=== PATIENT | male | born 1965 | race African-American/Black ===

== ENCOUNTER 2021-07-31 16:06 | Emergency (ER) | payer OTHER ==
--- NOTE | 2021-07-31 17:10 | EDM.PDOC ---
ED HPI GENERAL MEDICAL PROBLEM - General Chief Complaint: Respiratory Problem Stated Complaint: ABDOMINAL PAIN COUGH Time Seen by Provider: 07/31/21 16:52 Source of Information: Reports: Patient, RN Notes Reviewed History Limitations: Reports: No Limitations - History of Present Illness INITIAL COMMENTS - FREE TEXT/NARRATIVE: Patient is a 56-year-old male who presents to the ER for the evaluation of his cough. Patient states that for the last week, he has had a generalized nonproductive cough. States anytime he really tries to talk, he coughs. He does have some associated feelings of being hot and cold, and shortness of breath. Patient notes that it has worsened over the last 2 days as well. He does state that he got his first Pfizer Covid vaccine sometime in June but he cannot remember the date specifically. He does not think he has been around anyone that is been sick that he is aware of. He is having some generalized abdominal discomfort, seems to worsen when he is coughing, or just after he is done coughing. He has not been taking any medications for this. Patient does have some history of hypertension, and states that he is set to have an ultr asound of his renal system for ongoing management of this. Patient also states he has had not much of an appetite, so he feels generalized weakness because he is not really been eating well. Abdomen Pain Score (Numeric/FACES): 8 - Related Data Allergies Allergy/AdvReac Type Severity Reaction Status Date / Time No Known Allergies Allergy Verified 07/31/21 16:43 Home Meds: Home Meds Codeine/Promethazine [Phenergan with Codeine] 5 ml PO Q4HR PRN #120 ml 07/31/21 [Rx] Losartan Potassium [Cozaar] 1 tab PO DAILY 07/31/21 [History] Spironolactone [Aldactone] 25 mg PO DAILY 07/31/21 [History] hydroCHLOROthiazide [Hydrochlorothiazide] 25 mg PO DAILY 07/31/21 [History] Past Medical History Cardiovascular History: Reports: Hypertension Social & Family History - Tobacco Use Tobacco Use Status *Q: Never Tobacco User - Caffeine Use Caffeine Use: Reports: None - Recreational Drug Use Recreational Drug Use: No ED ROS GENERAL - Review of Systems Review Of Systems: Comprehensive ROS is negative, except as noted in HPI. ED EXAM, GENERAL - Physical Exam Exam: See Below Exam Limited By: No Limitations General Appearance: Alert, WD/WN, No Apparent Distress Respiratory/Chest: No Respiratory Distress, Lungs Clear, Normal Breath Sounds, No Accessory Muscle Use, Chest Non-Tender Cardiovascular: Normal Peripheral Pulses, Regular Rate, Rhythm, No Edema Peripheral Pulses: 2+: Radial (L), Radial (R) GI/Abdominal: Normal Bowel Sounds, Soft, No Distention, No Mass, Tender (generalized discomfort) Neurological: Alert, Oriented, Normal Cognition, No Motor/Sensory Deficits Psychiatric: Normal Affect, Normal Mood Skin Exam: Warm, Dry, Intact, Normal Color, No Rash Course - Vital Signs Last Recorded V/S: Last Vital Signs Temp 97.6 F 07/31/21 16:39 Pulse 73 07/31/21 16:39 Resp 18 07/31/21 16:39 BP 106/65 07/31/21 16:39 Pulse Ox 100 07/31/21 16:39 - Orders/Labs/Meds Labs: Laboratory Tests 07/31/21 07/31/21 07/31/21 Range/Units 17:05 17:20 17:20 WBC 4.37 (4.23-9.07) K/mm3 RBC 5.22 (4.63-6.08) M/mm3 Hgb 13.5 L (13.7-17.5) gm/dl Hct 39.9 L (40.1-51.0) % MCV 76.4 L (79.0-92.2) fl MCH 25.9 (25.7-32.2) pg MCHC 33.8 (32.2-35.5) g/dl RDW Std Deviation 39.8 (35.1-43.9) fL Plt Count 248 (163-337) K/mm3 MPV 10.5 (9.4-12.3) fl Neut % (Auto) 74.8 H (34.0-67.9) % Lymph % (Auto) 12.4 L (21.8-53.1) % [place] % (Auto) 12.1 (5.3-12.2) % Eos % (Auto) 0 L (0.8-7.0) Baso % (Auto) 0.5 (0.1-1.2) % Neut # (Auto) 3.27 (1.78-5.38) K/mm3 Lymph # (Auto) 0.54 L (1.32-3.57) K/mm3 [place] # (Auto) 0.53 (0.30-0.82) K/mm3 Eos # (Auto) 0.00 L (0.04-0.54) K/mm3 Baso # (Auto) 0.02 (0.01-0.08) K/mm3 Sodium (136-145) mEq/L Potassium (3.5-5.1) mEq/L Chloride (98-107) mEq/L Carbon Dioxide (21-32) mEq/L Anion Gap (5-15) BUN (7-18) mg/dL Creatinine (0.7-1.3) mg/dL Est Cr Clr Drug Dosing mL/min Estimated GFR (MDRD) (>60) mL/min BUN/Creatinine Ratio (14-18) Glucose (70-99) mg/dL Calcium (8.5-10.1) mg/dL Magnesium (1.8-2.4) mg/dL Total Bilirubin (0.2-1.0) mg/dL AST (15-37) U/L ALT (16-63) U/L Alkaline Phosphatase (46-116) U/L C-Reactive Protein 11.5 H* (<1.0) mg/dL Total Protein (6.4-8.2) g/dl Albumin (3.4-5.0) g/dl Globulin gm/dL Albumin/Globulin Ratio (1-2) Influenza Type A RNA Negative (NEGATIVE) Influenza Type B RNA Negative (NEGATIVE) SARS-CoV-2 RNA (BACILIO) Positive H (NEGATIVE) 07/31/21 Range/Units 17:20 WBC (4.23-9.07) K/mm3 RBC (4.63-6.08) M/mm3 Hgb (13.7-17.5) gm/dl Hct (40.1-51.0) % MCV (79.0-92.2) fl MCH (25.7-32.2) pg MCHC (32.2-35.5) g/dl RDW Std Deviation (35.1-43.9) fL Plt Count (163-337) K/mm3 MPV (9.4-12.3) fl Neut % (Auto) (34.0-67.9) % Lymph % (Auto) (21.8-53.1) % [place] % (Auto) (5.3-12.2) % Eos % (Auto) (0.8-7.0) Baso % (Auto) (0.1-1.2) % Neut # (Auto) (1.78-5.38) K/mm3 Lymph # (Auto) (1.32-3.57) K/mm3 [place] # (Auto) (0.30-0.82) K/mm3 Eos # (Auto) (0.04-0.54) K/mm3 Baso # (Auto) (0.01-0.08) K/mm3 Sodium 138 (136-145) mEq/L Potassium 4.2 (3.5-5.1) mEq/L Chloride 101 (98-107) mEq/L Carbon Dioxide 26 (21-32) mEq/L Anion Gap 15.2 H (5-15) BUN 32 H (7-18) mg/dL Creatinine 2.5 H (0.7-1.3) mg/dL Est Cr Clr Drug Dosing 34.47 mL/min Estimated GFR (MDRD) 33 (>60) mL/min BUN/Creatinine Ratio 12.8 L (14-18) Glucose 94 (70-99) mg/dL Calcium 8.4 L (8.5-10.1) mg/dL Magnesium 2.2 (1.8-2.4) mg/dL Total Bilirubin 0.6 (0.2-1.0) mg/dL AST 25 (15-37) U/L ALT 24 (16-63) U/L Alkaline Phosphatase 39 L (46-116) U/L C-Reactive Protein (<1.0) mg/dL Total Protein 7.3 (6.4-8.2) g/dl Albumin 3.0 L (3.4-5.0) g/dl Globulin 4.3 gm/dL Albumin/Globulin Ratio 0.7 L (1-2) Influenza Type A RNA (NEGATIVE) Influenza Type B RNA (NEGATIVE) SARS-CoV-2 RNA (BACILIO) (NEGATIVE) - Re-Assessments/Exams Free Text/Narrative Re-Assessment/Exam: 07/31/21 17:09 Patient presents to the ER for the evaluation of his cough, and generalized abdominal discomfort. We will do a COVID-19 screen, and some basic labs and a chest x-ray for ongoing evaluation. Departure - Departure Time of Disposition: 18:54 Disposition: Home, Self-Care 01 Condition: Good Clinical Impression: COVID-19 - Discharge Information *PRESCRIPTION DRUG MONITORING PROGRAM REVIEWED*: No *COPY OF PRESCRIPTION DRUG MONITORING REPORT IN PATIENT CAROL ANN: No Prescriptions: Codeine/Promethazine [Phenergan with Codeine] 5 ml PO Q4HR PRN #120 ml PRN Reason: Cough Instructions: 10 Things You Can Do to Manage Your COVID-19 Symptoms at Home - [facility] (05/11/2021), COVID-19 Frequently Asked Questions Forms: ED Department Discharge Additional Instructions: You were seen in the ER today for ongoing and/or worsening respiratory symptoms. Your chest x-ray showed no subtle signs of viral pneumonia at this time, which is typical for COVID-19 Your oxygen levels were great at 97-98 Please try to increase your oral fluid intake, and eat multiple small meals throughout the day, to keep yourself healthy. You need to keep yourself nourished in order to fight off this disease. You can try a liquid diet like gatorade/powerade as well to get your electrolytes. You may take 500 mg Tylenol every hours 6 hours for pain/fever relief. Do not exceed 4000 mg Tylenol in a 24-hour time span. However, running a fever is your body's natural response to illness, and it allows the body to develop antibodies to disease, we are recommending trying to limit the use of Tylenol as much as possible to allow your body's natural immune response. Recommend you obtain a pulse oximeter and monitor your oxygen levels at home, you should place the monitor on your finger, and sit in a calm, quiet position for a few minutes and then record the number that is on the screen. If this c onsistently below 90% on room air without movement, this would be cause for concern to come back to the hospital for further management of your COVID-19 disease. Please follow all guidance set forth from [facility], regarding isolation purposes for your disease process. General isolation times are 10 days from when you started being symptomatic. You were given a cough medicine prescription that you can fill at your local pharmacy tomorrow. Due to you being Covid positive I would suggest that you call your pharmacy before you go there and let them know of your Covid status so they can maybe bring the cough medicine out to your car for use you can limit your exposure to others. This medication was electronically prescribed to the [facility] located in [facility] Sepsis Event Note (ED) - Evaluation Sepsis Screening Result: No Definite Risk - Focused Exam Vital Signs: Vital Signs Temp Pulse Resp BP Pulse Ox 07/31/21 16:39 97.6 F 73 18 106/65 100
[2021-07-31 18:36] LABS: CORONAVIRUS COVID-19 NAA POSITIVE (NEGATIVE)
--- NOTE | 2021-07-31 18:42 | CR ---
Chest: Portable view of the chest was obtained. Comparison: No prior chest imaging is available. Heart size is within normal limits. Tortuous thoracic aorta is seen. Slight parenchymal densities are noted along the lateral lower left chest as well as within the right lower chest. Upper lungs are clear. Bony structures show nothing acute. Impression: 1. Slight parenchymal change on both sides as described above most likely representing mild areas of pneumonia. Please correlate if this represents COVID etiology. Diagnostic code #3
== END 2021-07-31 21:00 | disposition home or self-care (01) ==
LOC: JD.ED 16:06
DX: U07.1 COVID-19 (principal); I10 Essential (primary) hypertension; Z79.899 Other long term (current) drug therapy
CPT/HCPCS: 0240U; 36415; 71045; 80053; 83735; 85025; 86140; 99285

== ENCOUNTER 2021-08-02 11:17 | Emergency (ER) | payer OTHER ==
[2021-08-02] MEDS ORDERED: Lactated Ringers 1,000 ML IV ONE (11:57)
--- NOTE | 2021-08-02 12:10 | EDM.PDOC ---
ED HPI GENERAL MEDICAL PROBLEM - General Chief Complaint: Respiratory Problem Stated Complaint: COVID +/SOB Time Seen by Provider: 08/02/21 11:30 Source of Information: Reports: Patient History Limitations: Reports: No Limitations - History of Present Illness INITIAL COMMENTS - FREE TEXT/NARRATIVE: Patient is 56-year-old male with no significant past medical history presenting with a chief complaint of shortness of breath and pain in his chest. Patient reports having right-sided pain which is described as a burning sensation. He also reports pain in his left side that is less severe. Patient states the pain is worse when he takes a deep breath or coughs. Denies any hematemesis. Denies any nausea or vomiting. Patient reports decreased appetite but is drinking Gatorade for fluid intake. Patient denies any urinary symptoms or abdominal pain. Patient diagnosed with Covid several days ago but patient has had approximately 2 weeks of symptoms. Patient received 1 dose of the Covid vaccine but did not receive a 2nd dose. Chest Pain Score (Numeric/FACES): 8 - Related Data Allergies Allergy/AdvReac Type Severity Reaction Status Date / Time No Known Allergies Allergy Verified 08/02/21 11:34 Home Meds: Home Meds Codeine/Promethazine [Phenergan with Codeine] 5 ml PO Q4HR PRN #120 ml 07/31/21 [Rx] Losartan Potassium [Cozaar] 1 tab PO DAILY 07/31/21 [History] Spironolactone [Aldactone] 25 mg PO DAILY 07/31/21 [History] hydroCHLOROthiazide [Hydrochlorothiazide] 25 mg PO DAILY 07/31/21 [History] Apixaban [Eliquis] 10 mg PO BID 7 Days #42 tablet 08/02/21 [Rx] Past Medical History Cardiovascular History: Reports: Hypertension - Infectious Disease History Infectious Disease History: Reports: Novel Coronavirus Social & Family History - Tobacco Use Tobacco Use Status *Q: Never Tobacco User Second Hand Smoke Exposure: No - Caffeine Use Caffeine Use: Reports: None - Recreational Drug Use Recreational Drug Use: No ED ROS GENERAL - Review of Systems Review Of Systems: See Below Free Text/Narrative/Comment: In addition to that documented in the HPI above, the additional ROS was obtained: Constitutional: Denies fevers or chills Eyes: Denies vision changes ENMT: Denies sore throat CV: Per HPI Resp: Per HPI GI: Denies vomiting or diarrhea : Denies painful urination MSK: Denies recent trauma Skin: Denies new rashes Neuro: Denies new numbness or tingling or weakness Endocrine: Denies unexpected weight loss Heme: Denies bleeding disorders ED EXAM, GENERAL - Physical Exam Exam: See Below Free Text/Narrative:: I have reviewed the triage vital signs Const: Well nourished, well developed, appears stated age Eyes: Pupils Equal and reactive to light bilaterally, no conjunctival injection HENT: No signs of trauma or swelling, Neck supple without meningismus CV: Regular Rate Rhythm, Warm, well-perfused extremities RESP: Unlabored respiratory effort GI: soft, non-tender, non-distended, no masses MSK: No gross deformities appreciated Skin: Warm, dry. 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 Sensation and motor function of extremities grossly intact. Psych: Appropriate mood and affect. Course - Vital Signs Last Recorded V/S: Last Vital Signs Temp 36.3 C 08/02/21 11:30 Pulse 58 L 08/02/21 11:30 Resp 24 H 08/02/21 11:30 BP 127/93 H 08/02/21 11:30 Pulse Ox 97 08/02/21 11:30 - Orders/Labs/Meds Orders: Active Orders 24 hr Category Date Time Status TROPONIN I [CHEM] Stat Lab 08/02/21 12:30 Received UA W/MICROSCOPIC [URIN] Stat Lab 08/02/21 11:57 Ordered Sodium Chloride 0.9% [Normal Saline] 100 ml Med 08/02/21 13:45 Active IV ASDIRECTED Sodium Chloride 0.9% [Saline Flush] Med 08/02/21 13:43 Active 10 ml FLUSH ONETIME PRN Medication Orders Sodium Chloride (Normal Saline) 100 mls @ 75 mls/hr IV ASDIRECTED ALFREDA Last Admin: 08/02/21 14:01 Dose: 75 mls/hr Documented by: GRACIELA Sodium Chloride (Sodium Chloride 0.9% 10 Ml Syringe) 10 ml FLUSH ONETIME PRN PRN Reason: IV FLUSH Last Admin: 08/02/21 14:01 Dose: 10 ml Documented by: GRACIELA Labs: Laboratory Tests 08/02/21 08/02/21 08/02/21 Range/Units 12:30 12:30 12:30 WBC 5.73 (4.23-9.07) K/mm3 RBC 5.32 (4.63-6.08) M/mm3 Hgb 13.7 (13.7-17.5) gm/dl Hct 41.2 (40.1-51.0) % MCV 77.4 L (79.0-92.2) fl MCH 25.8 (25.7-32.2) pg MCHC 33.3 (32.2-35.5) g/dl RDW Std Deviation 40.9 (35.1-43.9) fL Plt Count 309 (163-337) K/mm3 MPV 10.2 (9.4-12.3) fl Neut % (Auto) 77.7 H (34.0-67.9) % Lymph % (Auto) 9.1 L (21.8-53.1) % [place] % (Auto) 12.6 H (5.3-12.2) % Eos % (Auto) 0 L (0.8-7.0) Baso % (Auto) 0.3 (0.1-1.2) % Neut # (Auto) 4.45 (1.78-5.38) K/mm3 Lymph # (Auto) 0.52 L (1.32-3.57) K/mm3 [place] # (Auto) 0.72 (0.30-0.82) K/mm3 Eos # (Auto) 0.00 L (0.04-0.54) K/mm3 Baso # (Auto) 0.02 (0.01-0.08) K/mm3 Manual Slide Review Normal smear PT 10.9 (9.7-12.0) SECONDS INR 0.98 D-Dimer, Quantitative 30.33 H (0.19-0.50) mg/L Sodium 138 (136-145) mEq/L Potassium 4.6 (3.5-5.1) mEq/L Chloride 101 (98-107) mEq/L Carbon Dioxide 25 (21-32) mEq/L Anion Gap 16.6 H (5-15) BUN 35 H (7-18) mg/dL Creatinine 2.3 H (0.7-1.3) mg/dL Est Cr Clr Drug Dosing 37.47 mL/min Estimated GFR (MDRD) 36 (>60) mL/min BUN/Creatinine Ratio 15.2 (14-18) Glucose 102 H (70-99) mg/dL Calcium 8.6 (8.5-10.1) mg/dL Total Bilirubin 0.6 (0.2-1.0) mg/dL AST 20 (15-37) U/L ALT 23 (16-63) U/L Alkaline Phosphatase 42 L (46-116) U/L Total Protein 7.4 (6.4-8.2) g/dl Albumin 2.8 L (3.4-5.0) g/dl Globulin 4.6 gm/dL Albumin/Globulin Ratio 0.6 L (1-2) Meds: Medications Generic Name Dose Route Start Last Admin Trade Name Freq PRN Reason Stop Dose Admin Sodium Chloride 100 mls @ 75 mls/hr 08/02/21 13:45 08/02/21 14:01 Normal Saline IV 75 mls/hr ASDIRECTED ALFREDA Administration Sodium Chloride 10 ml 08/02/21 13:43 08/02/21 14:01 Sodium Chloride 0.9% 10 Ml Syringe FLUSH 10 ml ONETIME PRN Administration IV FLUSH Discontinued Medications Generic Name Dose Route Start Last Admin Trade Name Freq PRN Reason Stop Dose Admin Apixaban 10 mg 08/02/21 14:48 Apixaban 5 Mg Tab PO 08/02/21 14:49 ONETIME ONE Lactated Ringer's 1,000 mls @ 1,000 mls/hr 08/02/21 11:57 08/02/21 12:45 Ringers, Lactated IV 08/02/21 12:56 1,000 mls/hr .BOLUS ONE Administration Iopamidol 100 ml 08/02/21 13:43 08/02/21 14:01 Iopamidol 755 Mg/Ml 100 Ml Bottle IVPUSH 08/02/21 13:44 100 ml ONETIME ONE Administration Departure - Departure Time of Disposition: 15:11 Disposition: Home, Self-Care 01 Clinical Impression: Pulmonary embolism and infarction, COVID-19 - Discharge Information *PRESCRIPTION DRUG MONITORING PROGRAM REVIEWED*: Not Applicable *COPY OF PRESCRIPTION DRUG MONITORING REPORT IN PATIENT CAROL ANN: Not Applicable Prescriptions: Apixaban [Eliquis] 10 mg PO BID 7 Days #42 tablet Instructions: Pulmonary Embolism Referrals: PCP,None [Primary Care Provider] - Forms: ED Department Discharge Additional Instructions: You need to follow-up with your primary care physician in the next week for further care. You will need to be on blood thinners for at least 3 months. Turn to the emergency room should your symptoms worsen or if you have any other emergent concerns. Sepsis Event Note (ED) - Evaluation Sepsis Screening Result: No Definite Risk - Focused Exam Vital Signs: Vital Signs Temp Pulse Resp BP Pulse Ox 08/02/21 11:30 36.3 C 58 L 24 H 127/93 H 97 - My Orders Last 24 Hours: My Active Orders 08/02/21 11:57 UA W/MICROSCOPIC [URIN] Stat 08/02/21 12:30 TROPONIN I [CHEM] Stat 08/02/21 13:43 Sodium Chloride 0.9% [Saline Flush] 10 ml FLUSH ONETIME PRN 08/02/21 13:45 Sodium Chloride 0.9% [Normal Saline] 100 ml IV ASDIRECTED - Assessment/Plan Last 24 Hours: My Active Orders 08/02/21 11:57 UA W/MICROSCOPIC [URIN] Stat 08/02/21 12:30 TROPONIN I [CHEM] Stat 08/02/21 13:43 Sodium Chloride 0.9% [Saline Flush] 10 ml FLUSH ONETIME PRN 08/02/21 13:45 Sodium Chloride 0.9% [Normal Saline] 100 ml IV ASDIRECTED Assessment:: Patient 56-year-old male presented to the emergency room with chest pain or shortness of breath. Patient hemodynamically stable with an oxygen saturation between 95 to 96% on room air. No tachycardia present. Differential diagnosis considered for this patient include Covid pneumonia, pulmonary embolism, pneumothorax, bacterial pneumonia, severe dehydration. Based on patient's of auditory evaluation, patient demonstrates evidence of stable kidney disease with a creatinine clearance of 37. Patient had no electrolyte abnormalities. CBC unremarkable for acute abnormalities. D-dimer significantly elevated greater than 30. Patient underwent CT angiogram which demonstrate extensive emboli without evidence of right heart strain. At this point, patient has a PESI score of 65 and is at very low risk for mortality. Patient will be initiated on E liquis in the emergency room and he was instructed regarding management going forward. Patient understands and agrees to this plan. All questions were addressed and answered. Discharged in stable condition.
[2021-08-02] MEDS ORDERED: Iopamidol 755 Mg/ML 100 ML Bottle IVPUSH ONE (13:43)
[2021-08-02] MEDS ORDERED: Sodium Chloride 0.9% 10 ML Syringe FLUSH PRN (13:43)
[2021-08-02] MEDS ORDERED: Sodium Chloride 0.9% 100 ML IV SCH (13:45)
--- NOTE | 2021-08-02 14:29 | CT ---
CT chest Technique: Multiple axial sections were obtained from above the lung apices inferiorly through the lung bases. Intravenous contrast was utilized. Study has been performed as a pulmonary angiogram protocol. Comparison: No prior chest CT is available; prior chest x-ray of 07/31/21. Findings: Filling defects are seen within the segmental and subsegmental branches within the right lower lung compatible with pulmonary emboli. Mild areas of additional pulmonary emboli are seen within subsegmental branches within the left lower lung. Thoracic aorta shows no aneurysm. Heart size is slightly enlarged. Visualized upper abdominal structures show nothing acute. Lung window settings were reviewed. Slight parenchymal densities are seen peripherally within the right upper lung. More focal areas of parenchymal density are seen within both lower lungs. Mild areas of parenchymal density are seen within the lingula and right middle lobe. Bone window settings were reviewed which show no acute osseous abnormality. Impression: 1. Pulmonary emboli within the segmental and subsegmental pulmonary emboli within the right lower lung as well as additional smaller pulmonary emboli within the subsegmental branches within the left lower lung. 2. Scattered areas of parenchymal density within both sides of the chest. Some of this may relate to areas of pulmonary infarction but difficult to exclude scattered areas of pulmonary infection. 3. Heart size is slightly enlarged. Diagnostic code #5
[2021-08-02] MEDS ORDERED: Apixaban 5 MG Tab PO ONE (14:48)
== END 2021-08-02 17:40 | disposition home or self-care (01) ==
LOC: JD.ED 11:17
DX: U07.1 COVID-19 (principal); I26.99 Other pulmonary embolism without acute cor pulmonale; I10 Essential (primary) hypertension; Z79.01 Long term (current) use of anticoagulants; Z79.899 Other long term (current) drug therapy
CPT/HCPCS: 36415; 71275; 80053; 84484; 85025; 85379; 85610; 99285; A9270; J7120; Q9967

== ENCOUNTER 2021-08-07 10:15 | Observation (INO) | payer OTHER ==
[2021-08-07] MEDS ORDERED: Orphenadrine 100 MG Tab.ER PO STA (11:35)
[2021-08-07] MEDS ORDERED: Benzonatate 100 MG Cap PO ONE (11:42)
--- NOTE | 2021-08-07 11:52 | EDM.PDOC ---
ED HPI GENERAL MEDICAL PROBLEM - General Chief Complaint: ENT Problem Stated Complaint: BLOOD IN COUGH Time Seen by Provider: 08/07/21 10:56 Source of Information: Reports: Patient History Limitations: Reports: No Limitations - History of Present Illness INITIAL COMMENTS - FREE TEXT/NARRATIVE: 56-year-old male presents the emergency department today with complaints of hemoptysis and intermittent right rib pain. Per the patient's history he was seen here in this emergency department and diagnosed with Covid on 07/31/2021. The patient then returned to the emergency department on 08/02/2021 with complaints of increasing shortness of breath and chest pain. Full cardiac work- up was completed on this day and it was discovered after CT scan that the patient did have extensive pulmonary emboli without evidence of right heart strain. He was started on Eliquis 10 mg twice daily for 7 days and discharged home. Of note, the patient did have his first Covid vaccination sometime in June. The patient now presents today stating that he is still having complaints of intermittent severe right rib discomfort. The patient states that the most severe rib discomfort occurs when he is coughing. He states he has been taking his Phenergan with codeine for cough but also taking an Eliquis tab at that time as he states he feels it helps with the pain. Patient states he has been taking 10 mg of Eliquis twice daily as well as an extra 5 mg once daily for the past 3 days. He now presents with intermittent hemoptysis. He states he coughed first thing this morning and there was a moderate amount of blood noted in his sputum. A couple of hours later when he coughed sputum was pink-tinged and the last time that he had a coughing episode he states there was no blood noted. The patient denies any black tarry stools. Did discuss at length that the Eliquis is not to be taken for pain or discomfort and that it is specifically prescribed to him for his PEs in his lungs and needs to be taken as prescribed twice daily 12 hours apart. He states he has been taking Tylenol 650 mg once daily first thing in the morning when he takes his Eliquis. The patient is also requesting a refill of his Phenergan with codeine. Right Chest Pain Score (Numeric/FACES): 10 - Related Data Allergies Allergy/AdvReac Type Severity Reaction Status Date / Time No Known Allergies Allergy Verified 08/07/21 10:41 Home Meds: Home Meds Codeine/Promethazine [Phenergan with Codeine] 5 ml PO Q4HR PRN #120 ml 07/31/21 [Rx] Losartan Potassium [Cozaar] 1 tab PO DAILY 07/31/21 [History] Spironolactone [Aldactone] 25 mg PO DAILY 07/31/21 [History] hydroCHLOROthiazide [Hydrochlorothiazide] 25 mg PO DAILY 07/31/21 [History] Apixaban [Eliquis] 10 mg PO BID 7 Days #42 tablet 08/02/21 [Rx] Past Medical History - Past Health History Medical/Surgical History: Denies Medical/Surgical History Cardiovascular History: Reports: Hypertension - Infectious Disease History Infectious Disease History: Reports: Novel Coronavirus Social & Family History - Tobacco Use Tobacco Use Status *Q: Never Tobacco User Second Hand Smoke Exposure: No - Caffeine Use Caffeine Use: Reports: None - Recreational Drug Use Recreational Drug Use: No ED ROS GENERAL - Review of Systems Review Of Systems: Comprehensive ROS is negative, except as noted in HPI. ED EXAM, GENERAL - Physical Exam Exam: See Below Exam Limited By: No Limitations General Appearance: Alert, WD/WN, No Apparent Distress Ears: Normal External Exam, Hearing Grossly Normal Nose: Normal Inspection Throat/Mouth: Normal Inspection, Normal Lips, Normal Voice, No Airway Compromise Head: Atraumatic Neck: Normal Inspection, Supple Respiratory/Chest: No Respiratory Distress, Normal Breath Sounds (Crackles noted to the right posterior lobe), No Accessory Muscle Use, Chest Non-Tender, Crackles Cardiovascular: Normal Peripheral Pulses, Regular Rate, Rhythm, No Edema, No Murmur Peripheral Pulses: 2+: Radial (L), Radial (R) GI/Abdominal: Normal Bowel Sounds, Soft, Non-Tender, No Distention (Male) Exam: Deferred Rectal (Males) Exam: Deferred Back Exam: Normal Inspection Extremities: Normal Inspection Neurological: Alert, Oriented, Normal Cognition Psychiatric: Normal Affect, Normal Mood Skin Exam: Warm, Dry, Intact, Normal Color, No Rash Lymphatic: No Adenopathy Course - Vital Signs Text/Narrative:: As stated above, patient presents with right rib discomfort that is likely due to Covid pneumonia. Patient also has intermittent coughing episodes for which she is prescribed Phenergan with codeine. Recently he was diagnosed with PEs and started on Eliquis 10 mg twice daily. However, patient has been taking Eliquis up to 3 times daily for the past 3 days as he is using it for right rib pain associated with coughing. At the time of my exam, the patient is hemodynamically stable. Physical exam does reveal some fine crackles noted to the right posterior lobe. No cough was elicited with deep breathing. Will obtain lab studies to include a CBC, CMP and obtain a portable chest x-ray. Coagulation studies are of no help due to the fact that there is no way to measure coagulation of Eliquis. We will also give the patient on a Norflex for the discomfort to his right rib area. Last Recorded V/S: Last Vital Signs Temp 98.1 F 08/07/21 10:40 Pulse 60 08/07/21 10:40 Resp 17 08/07/21 10:40 BP 151/109 H 08/07/21 10:40 Pulse Ox 98 08/07/21 10:40 - Orders/Labs/Meds Orders: Active Orders 24 hr Category Date Time Status Patient Status [ADT] Routine ADT 08/07/21 13:43 Active Labs: Laboratory Tests 08/07/21 08/07/21 Range/Units 12:25 12:25 WBC 5.89 (4.23-9.07) K/mm3 RBC 4.42 L (4.63-6.08) M/mm3 Hgb 11.5 L D (13.7-17.5) gm/dl Hct 34.8 L (40.1-51.0) % MCV 78.7 L (79.0-92.2) fl MCH 26.0 (25.7-32.2) pg MCHC 33.0 (32.2-35.5) g/dl RDW Std Deviation 40.0 (35.1-43.9) fL Plt Count 584 H D (163-337) K/mm3 MPV 9.3 L (9.4-12.3) fl Neut % (Auto) 72.1 H (34.0-67.9) % Lymph % (Auto) 9.8 L (21.8-53.1) % [place] % (Auto) 16.8 H (5.3-12.2) % Eos % (Auto) 0.3 L (0.8-7.0) Baso % (Auto) 0.5 (0.1-1.2) % Neut # (Auto) 4.24 (1.78-5.38) K/mm3 Lymph # (Auto) 0.58 L (1.32-3.57) K/mm3 [place] # (Auto) 0.99 H (0.30-0.82) K/mm3 Eos # (Auto) 0.02 L (0.04-0.54) K/mm3 Baso # (Auto) 0.03 (0.01-0.08) K/mm3 Manual Slide Review Abnormal smear Sodium 136 (136-145) mEq/L Potassium 5.0 (3.5-5.1) mEq/L Chloride 102 (98-107) mEq/L Carbon Dioxide 29 (21-32) mEq/L Anion Gap 10.0 (5-15) BUN 23 H (7-18) mg/dL Creatinine 1.8 H (0.7-1.3) mg/dL Est Cr Clr Drug Dosing 47.88 mL/min Estimated GFR (MDRD) 48 (>60) mL/min BUN/Creatinine Ratio 12.8 L (14-18) Glucose 89 (70-99) mg/dL Calcium 8.6 (8.5-10.1) mg/dL Total Bilirubin 0.5 (0.2-1.0) mg/dL AST 12 L (15-37) U/L ALT 17 (16-63) U/L Alkaline Phosphatase 41 L (46-116) U/L Total Protein 6.9 (6.4-8.2) g/dl Albumin 2.3 L (3.4-5.0) g/dl Globulin 4.6 gm/dL Albumin/Globulin Ratio 0.5 L (1-2) Meds: Medications Discontinued Medications Generic Name Dose Route Start Last Admin Trade Name Freq PRN Reason Stop Dose Admin Benzonatate 100 mg 08/07/21 11:42 08/07/21 11:53 Benzonatate 100 Mg Cap PO 08/07/21 11:43 100 mg ONETIME ONE Administration Orphenadrine Citrate 100 mg 08/07/21 11:35 08/07/21 11:53 Orphenadrine 100 Mg Tab.Er PO 08/07/21 11:36 100 mg NOW STA Administration - Re-Assessments/Exams Free Text/Narrative Re-Assessment/Exam: 08/07/21 12:25 Radiologist impression frontal view of the chest: 1. Increased density within both lung bases which is felt to be fairly similar to prior chest CT. 2. Mild cardiomegaly and tortuous thoracic aorta. 3. Nothing acute is otherwise appreciated. 08/07/21 13:31 Hematology reveals a WBC of 5.89, hemoglobin 11.5, hematocrit 34.8, platelet count 584 Chemistry reveals a sodium of 136, potassium 5.0, anion gap 10.0, BUN 23, creatinine 1.8, glucose 89 Hemoglobin that was drawn on 08/02/2021 was 13.7. Patient has dropped 2 g in 5 days. I feel this patient should be admitted to the hospital for observation status to monitor for further bleeding. I did discuss the case with Dr. Alas, hospitalist who has agreed to accept the patient under his care. Departure - Departure Time of Disposition: 14:07 Disposition: Refer to Observation Condition: Good Clinical Impression: Cough with hemoptysis, Noncompliance with medication regimen - Discharge Information Sepsis Event Note (ED) - Focused Exam Vital Signs: Vital Signs Temp Pulse Resp BP Pulse Ox 08/07/21 10:40 98.1 F 60 17 151/109 H 98 - My Orders Last 24 Hours: My Active Orders 08/07/21 13:43 Patient Status [ADT] Routine - Assessment/Plan Last 24 Hours: My Active Orders 08/07/21 13:43 Patient Status [ADT] Routine
--- NOTE | 2021-08-07 12:23 | CR ---
Chest: Frontal view of the chest was obtained. Comparison: Prior chest x-ray of 07/31/[address] of 08/02/21.. Increased density is noted within the right lung base appearing more prominent than on prior chest x-ray but appears fairly similar to prior chest CT. Slight increased density within the left lung base is also noted and is also felt to be similar to prior chest CT exam. Heart is slightly enlarged. Tortuous thoracic aorta is seen. No pneumothorax is seen. No acute osseous abnormality is appreciated. Impression: 1. Increased density within both lung bases which is felt to be fairly similar to prior chest CT. 2. Mild cardiomegaly and tortuous thoracic aorta. 3. Nothing acute is otherwise appreciated. Diagnostic code #3
--- NOTE | 2021-08-07 14:12 | PCM.HP.2 ---
H&P History of Present Illness - General Date of Service: 08/07/21 Admit Problem/Dx: Admission Diagnosis/Problem Admission Diagnosis/Problem Hemoptysis Source of Information: Patient, Old Records, Provider, RN, RN Notes Reviewed History Limitations: Reports: No Limitations - History of Present Illness Initial Comments - Free Text/Narative: This is a 56-year-old male who presents to ED on 08/07/2021 with hemoptysis and intermittent right rib pain. He was reportedly seen in our emergency department and subsequently diagnosed with Covid on 07/31/2021. He returned 2 days later noting increased shortness of breath and rib pain and CTA showed extensive pulmonary emboli without evidence of right heart strain. He was started on Eliquis 10 mg twice daily and discharged home. He reportedly completed one dose of Covid vaccination in June. Today he notes he has had significant rib pain with coughing and that he has been taking Phenergan with codeine for cough but also has been taking an extra Eliquis tab because he feels like it helps with the pain. He reports he is still taking his prescribed 10 mg of Eliquis twice daily but has been taking an extra 5 mg tablet once a day for the past 3 days. He notes he had a moderate amount of blood in his sputum today denies any black or tarry stools. He is also been taking home Tylenol. In the ED temp is 98.1 Fahrenheit. Pulse 60. Respirations 17. Blood pressure 151/109. Pulse ox is 98%. Labs are obtained showing a WBC of 5.89. Hemoglobin is 11.5. Of note it was 13.5 and 13.7 on his prior visits. Platelets are elevated at 584,000. Neutrophils are 72.1%. Sodium is 136. Potassium 5.0. Chloride 102. Carbon dioxide 29. Anion gap 10.0. BUN is 2.3. Creatinine 1.8. GFR is 48. Calcium is 8.6. Total bilirubin 0.5. AST is 12, ALT 17, alkaline phosphatase 41. Albumin is low at 2.3. He is given a Tessalon Perles and a Norflex for his rib pain. Chest x-ray is obtained showing increased density within both lung bases which is felt to be fairly similar to prior chest CT. There is also mild cardiomegaly and tortuous thoracic aorta but nothing acute appreciated. He carries a history of hypertension. He is a full code. He is admitted to the medical surgical floor observation status for further management and monitoring of his Eliquis induced hemoptysis secondary to overdose. Right Chest Pain Score (Numeric/FACES): 10 - Related Data Allergies/Adverse Reactions: Allergies Allergy/AdvReac Type Severity Reaction Status Date / Time No Known Allergies Allergy Verified 08/07/21 15:21 Home Medications: Home Meds Codeine/Promethazine [Phenergan with Codeine] 5 ml PO Q4HR PRN #120 ml 07/31/21 [Rx] Losartan Potassium [Cozaar] 1 tab PO DAILY 07/31/21 [History] Spironolactone [Aldactone] 25 mg PO DAILY 07/31/21 [History] hydroCHLOROthiazide [Hydrochlorothiazide] 25 mg PO DAILY 07/31/21 [History] Apixaban [Eliquis] 10 mg PO BID 7 Days #42 tablet 08/02/21 [Rx] Ibuprofen 400 mg PO BID PRN 08/07/21 [History] Past Medical History - Past Health History Medical/Surgical History: Denies Medical/Surgical History Cardiovascular History: Reports: Hypertension - Infectious Disease History Infectious Disease History: Reports: Novel Coronavirus Social & Family History - Tobacco Use Tobacco Use Status *Q: Never Tobacco User Second Hand Smoke Exposure: No - Caffeine Use Caffeine Use: Reports: None - Recreational Drug Use Recreational Drug Use: No H&P Review of Systems - Review of Systems: Review Of Systems: See Below General: Reports: No Symptoms. Denies: Fever, Chills, Malaise, Weakness, Fatigue HEENT: Reports: No Symptoms. Denies: Headaches, Sore Throat Pulmonary: Reports: Pleuritic Chest Pain, Cough, Sputum, Hemoptysis. Denies: Shortness of Breath, Wheezing Cardiovascular: Reports: Dyspnea on Exertion. Denies: Chest Pain, Palpitations, Edema Gastrointestinal: Reports: No Symptoms. Denies: Abdominal Pain, Constipation, Diarrhea, Nausea, Vomiting Genitourinary: Reports: No Symptoms. Denies: Pain Musculoskeletal: Reports: No Symptoms Skin: Reports: No Symptoms. Denies: Cyanosis Psychiatric: Reports: No Symptoms. Denies: Confusion Neurological: Reports: No Symptoms. Denies: Confusion, Dizziness, Headache, Numbness, Seizure, Syncope, Tingling, Difficulty Walking, Weakness, Gait Disturbance Hematologic/Lymphatic: Reports: No Symptoms Immunologic: Reports: No Symptoms Exam - Exam Exam: See Below - Vital Signs Vital Signs: Last Vital Signs Temp 98.1 F 08/07/21 10:40 Pulse 60 08/07/21 10:40 Resp 17 08/07/21 10:40 BP 151/109 H 08/07/21 10:40 Pulse Ox 98 08/07/21 10:40 Weight: 175 lb - Exam Quality Assessment: DVT Prophylaxis. No: Supplemental Oxygen, Urinary Catheter General: Alert, Oriented, Cooperative. No: Mild Distress HEENT: Conjunctiva Clear, EACs Clear, Mucosa Moist & [place], Posterior Pharynx Clear Neck: Supple, Trachea Midline Lungs: Normal Respiratory Effort, Decreased Breath Sounds, Crackles Cardiovascular: Regular Rate, Regular Rhythm GI/Abdominal Exam: Normal Bowel Sounds, Soft, Non-Tender, No Distention (Male) Exam: Deferred Rectal (Males) Exam: Deferred Back Exam: Normal Inspection, Full Range of Motion Extremities: Normal Inspection, Normal Range of Motion, Non-Tender, No Pedal Edema, Normal Capillary Refill Peripheral Pulses: 2+: Radial (L), Radial (R), Dorsalis Pedis (L), Dorsalis Ped is (R) Skin: Warm, Dry, Intact Neurological: Cranial Nerves Intact (Grossly ) Neuro Extensive - Mental Status: Alert, Oriented x3, Normal Mood/Affect - Patient Data Lab Results Last 24 hrs: Laboratory Results - last 24 hr 08/07/21 08/07/21 Range/Units 12:25 12:25 WBC 5.89 (4.23-9.07) K/mm3 RBC 4.42 L (4.63-6.08) M/mm3 Hgb 11.5 L D (13.7-17.5) gm/dl Hct 34.8 L (40.1-51.0) % MCV 78.7 L (79.0-92.2) fl MCH 26.0 (25.7-32.2) pg MCHC 33.0 (32.2-35.5) g/dl RDW Std Deviation 40.0 (35.1-43.9) fL Plt Count 584 H D (163-337) K/mm3 MPV 9.3 L (9.4-12.3) fl Neut % (Auto) 72.1 H (34.0-67.9) % Lymph % (Auto) 9.8 L (21.8-53.1) % [place] % (Auto) 16.8 H (5.3-12.2) % Eos % (Auto) 0.3 L (0.8-7.0) Baso % (Auto) 0.5 (0.1-1.2) % Neut # (Auto) 4.24 (1.78-5.38) K/mm3 Lymph # (Auto) 0.58 L (1.32-3.57) K/mm3 [place] # (Auto) 0.99 H (0.30-0.82) K/mm3 Eos # (Auto) 0.02 L (0.04-0.54) K/mm3 Baso # (Auto) 0.03 (0.01-0.08) K/mm3 Manual Slide Review Abnormal smear Sodium 136 (136-145) mEq/L Potassium 5.0 (3.5-5.1) mEq/L Chloride 102 (98-107) mEq/L Carbon Dioxide 29 (21-32) mEq/L Anion Gap 10.0 (5-15) BUN 23 H (7-18) mg/dL Creatinine 1.8 H (0.7-1.3) mg/dL Est Cr Clr Drug Dosing 47.88 mL/min Estimated GFR (MDRD) 48 (>60) mL/min BUN/Creatinine Ratio 12.8 L (14-18) Glucose 89 (70-99) mg/dL Calcium 8.6 (8.5-10.1) mg/dL Total Bilirubin 0.5 (0.2-1.0) mg/dL AST 12 L (15-37) U/L ALT 17 (16-63) U/L Alkaline Phosphatase 41 L (46-116) U/L Total Protein 6.9 (6.4-8.2) g/dl Albumin 2.3 L (3.4-5.0) g/dl Globulin 4.6 gm/dL Albumin/Globulin Ratio 0.5 L (1-2) Result Diagrams: 08/07/21 12:25 08/07/21 12:25 Sepsis Event Note - Focused Exam Vital Signs: Vital Signs Temp Pulse Resp BP Pulse Ox 08/07/21 10:40 98.1 F 60 17 151/109 H 98 - Problem List (1) Cough with hemoptysis SNOMED Code(s): 59031496 ICD Code: R04.2 - HEMOPTYSIS Status: Acute Priority: High Current Visit: Yes (2) Noncompliance with medication regimen SNOMED Code(s): 810767001 ICD Code: Z91.14 - PATIENT'S OTHER NONCOMPLIANCE WITH MEDICATION REGIMEN Status: Acute Priority: High Current Visit: Yes (3) COVID-19 SNOMED Code(s): 845745089 ICD Code: U07.1 - COVID-19 Status: Chronic Priority: High Current Visit: Yes (4) Pulmonary embolism and infarction SNOMED Code(s): 5758568067603 ICD Code: I26.99 - OTHER PULMONARY EMBOLISM WITHOUT ACUTE COR PULMONALE Status: Chronic Priority: High Current Visit: Yes (5) HTN (hypertension) SNOMED Code(s): 35508412 ICD Code: I10 - ESSENTIAL (PRIMARY) HYPERTENSION Status: Chronic Priority: Medium Current Visit: No Qualifiers: Hypertension type: unspecified Qualified Code(s): I10 - Essential (primary) hypertension (6) Renal failure SNOMED Code(s): 09744995 ICD Code: N19 - UNSPECIFIED KIDNEY FAILURE Status: Acute Priority: Medium Current Visit: Yes Qualifiers: Renal failure chronicity: unspecified chronicity Qualified Code(s): N19 - Unspecified kidney failure (7) Medication overdose SNOMED Code(s): 8478075153 ICD Code: T50.901A - POISONING BY UNSP DRUG/MEDS/BIOL SUBST, ACCIDENTAL, INIT Status: Acute Priority: High Current Visit: Yes Qualifiers: Encounter type: initial encounter Injury intent: accidental or unintentional Qualified Code(s): T50.901A - Poisoning by unspecified drugs, medicaments and biological substances, accidental (unintentional), initial encounter Problem List Initiated/Reviewed/Updated: Yes Orders Last 24hrs: Active Orders 24 hr Category Date Time Status Patient Status [ADT] Routine ADT 08/07/21 13:43 Active Assessment/Plan Comment:: Assessment - day of admission 08/07/2021 * 56-year-old male who presents to ED with hemoptysis and intermittent right rib pain. * History of hypertension. * Reportedly seen in our emergency department and subsequently diagnosed with Covid on 07/31/2021 * Returned 2 days later noting increased shortness of breath and rib pain and CTA showed extensive pulmonary emboli without evidence of right heart strain. * Started on Eliquis 10 mg twice daily and discharged home * Reportedly completed one dose of Covid vaccination in June. * Today he notes he has had significant rib pain with coughing and that he has been taking Phenergan with codeine for cough but also has been taking an extra Eliquis tab because he feels like it helps with the pain * Reports he is still taking his prescribed 10 mg of Eliquis twice daily but has been taking an extra 5 mg tablet once a day for the past 3 days. * Notes he had a moderate amount of blood in his sputum today but denies any black or tarry stools. * He is also been taking home Tylenol. * Labs are obtained: * WBC 5.89. * Hemoglobin is 11.5. Of note it was 13.5 and 13.7 on his prior visits. * Platelets are elevated at 584,000. * Neutrophils are 72.1%. * Sodium is 136. * Potassium 5.0. * Chloride 102. * Carbon dioxide 29. * Anion gap 10.0. * BUN is 2.3. Creatinine 1.8. GFR is 48. * Calcium is 8.6. * Total bilirubin 0.5. * AST is 12, ALT 17, alkaline phosphatase 41. * Albumin is low at 2.3. * He is given a Tessalon Perles and a Norflex for his rib pain. * Chest x-ray is obtained showing increased density within both lung bases which is felt to be fairly similar to prior chest CT. There is also mild cardiomegaly and tortuous thoracic aorta but nothing acute appreciated. * Admitted to the medical surgical floor observation status for further management and monitoring of his Eliquis induced hemoptysis secondary to overdose. PLAN: Medication overdose Noncompliance with medication regimen * Explained action of Eliquis and what to take for pain instead * Recheck H/H today at 1900 * AM labs * Utilize teach back and good education at discharge to reinforce dosing instructions Pulmonary embolism and infarction * 5 mg Eliquis tonight * Consider 10 mg twice daily resumption of Eliquis tomorrow pending labs COVID-19 Cough with hemoptysis * Breathing exercises * RT consult * Airborne/contact isolation * O2 to keep saturation between 88 to 95% * Cough medications as prescribed * Pain medications as prescribed * Prone whenever able * Requested direction for how long to isolate/quarantine after discharge * Telemetry * Continuous pulse oximetry HTN (hypertension) * Home BP medications as prescribed * Monitor vital signs * No acute concerns Renal failure * Unknown baselineobtain old records * Avoid nephrotoxic medications if possible Code status: Full code PCP: None - needs to establish Swimming Pool Maintenance: Dr. Spencer DVT prophylaxis: Eliquis Disposition: Patient admitted observation status to the medical floor for monitoring due to Eliquis overdose and Covid pneumonia. Likely discharge in 1 to 2 days pending lab stability - Mortality Measure Prognosis:: Good
[2021-08-07] MEDS ORDERED: Ondansetron 4 MG/2 ML SDV IV PRN (14:17)
[2021-08-07] MEDS ORDERED: Albuterol/Ipratropium 3.0-0.5 MG/3 ML Neb Soln NEB PRN (14:17)
[2021-08-07] MEDS ORDERED: Albuterol 6.7 GM Inhaler INH PRN (14:17)
[2021-08-07] MEDS ORDERED: Codeine/Promethazine 10-6.25 MG/5 ML Syrup 5 ML UD Cup PO PRN (14:20)
[2021-08-07] MEDS: Benzonatate 100 MG Cap PO SCH ×2 (16:08→21:46)
[2021-08-07] MEDS ORDERED: Apixaban 5 MG Tab PO ONE (21:00)
[2021-08-07] MEDS: Acetaminophen 325 MG Tab PO PRN (22:14)
[2021-08-08] MEDS ORDERED: oxyCODONE 5 MG Tab PO PRN (00:12)
[2021-08-08] MEDS: Acetaminophen 325 MG Tab PO PRN (04:05)
[2021-08-08] MEDS: Benzonatate 100 MG Cap PO SCH ×2 (08:50→15:31)
[2021-08-08] MEDS ORDERED: Spironolactone 25 MG Tab PO SCH (09:00)
[2021-08-08] MEDS ORDERED: Hydrochlorothiazide 25 MG Tab PO SCH (09:00)
[2021-08-08] MEDS ORDERED: Apixaban 5 MG Tab PO SCH (09:00)
[2021-08-08] MEDS ORDERED: Losartan 50 MG Tab PO SCH (09:00)
--- NOTE | 2021-08-08 09:18 | PCM.PN ---
- General Info Date of Service: 08/08/21 Admission Dx/Problem (Free Text): Admission Diagnosis/Problem Admission Diagnosis/Problem Hemoptysis Functional Status: Reports: Pain Controlled, Tolerating Diet, Ambulating, Urinating. Denies: New Symptoms - Review of Systems General: Reports: No Symptoms. Denies: Fever, Weakness, Fatigue, Malaise, Chills HEENT: Reports: No Symptoms. Denies: Headaches, Sore Throat Pulmonary: Reports: Pleuritic Chest Pain, Cough, Hemoptysis. Denies: Shortness of Breath Cardiovascular: Reports: Dyspnea on Exertion. Denies: Chest Pain, Palpitations, Edema Gastrointestinal: Reports: No Symptoms. Denies: Abdominal Pain, Constipation, Diarrhea, Nausea, Vomiting Genitourinary: Reports: No Symptoms. Denies: Pain Musculoskeletal: Reports: No Symptoms Skin: Reports: No Symptoms. Denies: Cyanosis Neurological: Reports: No Symptoms. Denies: Confusion, Dizziness, Headache, Numbness, Pre-Existing Deficit, Tingling, Difficulty Walking, Weakness, Gait Disturbance Psychiatric: Reports: No Symptoms - Patient Data Vitals - Most Recent: Last Vital Signs Temp 98.4 F 08/08/21 03:55 Pulse 47 L 08/08/21 03:55 Resp 20 08/08/21 03:55 BP 138/69 08/08/21 08:50 Pulse Ox 99 08/08/21 03:55 Weight - Most Recent: 166 lb 3.2 oz I&O - Last 24 Hours: Intake & Output 08/07/21 08/08/21 08/08/21 22:59 06:59 14:59 Intake Total 400 1230 Output Total 200 2600 Balance 200 -1370 Lab Results Last 24 Hours: Laboratory Results - last 24 hr 08/07/21 08/07/21 08/07/21 Range/Units 12:25 12:25 19:18 WBC 5.89 (4.23-9.07) K/mm3 RBC 4.42 L (4.63-6.08) M/mm3 Hgb 11.5 L D 12.6 L (13.7-17.5) gm/dl Hct 34.8 L 38.3 L (40.1-51.0) % MCV 78.7 L (79.0-92.2) fl MCH 26.0 (25.7-32.2) pg MCHC 33.0 (32.2-35.5) g/dl RDW Std Deviation 40.0 (35.1-43.9) fL Plt Count 584 H D (163-337) K/mm3 MPV 9.3 L (9.4-12.3) fl Neut % (Auto) 72.1 H (34.0-67.9) % Lymph % (Auto) 9.8 L (21.8-53.1) % [place] % (Auto) 16.8 H (5.3-12.2) % Eos % (Auto) 0.3 L (0.8-7.0) Baso % (Auto) 0.5 (0.1-1.2) % Neut # (Auto) 4.24 (1.78-5.38) K/mm3 Lymph # (Auto) 0.58 L (1.32-3.57) K/mm3 [place] # (Auto) 0.99 H (0.30-0.82) K/mm3 Eos # (Auto) 0.02 L (0.04-0.54) K/mm3 Baso # (Auto) 0.03 (0.01-0.08) K/mm3 Manual Slide Review Abnormal smear Sodium 136 (136-145) mEq/L Potassium 5.0 (3.5-5.1) mEq/L Chloride 102 (98-107) mEq/L Carbon Dioxide 29 (21-32) mEq/L Anion Gap 10.0 (5-15) BUN 23 H (7-18) mg/dL Creatinine 1.8 H (0.7-1.3) mg/dL Est Cr Clr Drug Dosing 47.88 mL/min Estimated GFR (MDRD) 48 (>60) mL/min BUN/Creatinine Ratio 12.8 L (14-18) Glucose 89 (70-99) mg/dL Calcium 8.6 (8.5-10.1) mg/dL Magnesium (1.8-2.4) mg/dL Total Bilirubin 0.5 (0.2-1.0) mg/dL AST 12 L (15-37) U/L ALT 17 (16-63) U/L Alkaline Phosphatase 41 L (46-116) U/L C-Reactive Protein (<1.0) mg/dL Total Protein 6.9 (6.4-8.2) g/dl Albumin 2.3 L (3.4-5.0) g/dl Globulin 4.6 gm/dL Albumin/Globulin Ratio 0.5 L (1-2) 08/08/21 08/08/21 Range/Units 05:15 05:15 WBC 5.63 (4.23-9.07) K/mm3 RBC 4.33 L (4.63-6.08) M/mm3 Hgb 11.2 L (13.7-17.5) gm/dl Hct 34.0 L (40.1-51.0) % MCV 78.5 L (79.0-92.2) fl MCH 25.9 (25.7-32.2) pg MCHC 32.9 (32.2-35.5) g/dl RDW Std Deviation 39.3 (35.1-43.9) fL Plt Count 616 H (163-337) K/mm3 MPV 9.9 (9.4-12.3) fl Neut % (Auto) 62.8 (34.0-67.9) % Lymph % (Auto) 15.6 L (21.8-53.1) % [place] % (Auto) 19.9 H (5.3-12.2) % Eos % (Auto) 0.9 (0.8-7.0) Baso % (Auto) 0.4 (0.1-1.2) % Neut # (Auto) 3.54 (1.78-5.38) K/mm3 Lymph # (Auto) 0.88 L (1.32-3.57) K/mm3 [place] # (Auto) 1.12 H (0.30-0.82) K/mm3 Eos # (Auto) 0.05 (0.04-0.54) K/mm3 Baso # (Auto) 0.02 (0.01-0.08) K/mm3 Manual Slide Review Sodium 138 (136-145) mEq/L Potassium 4.4 (3.5-5.1) mEq/L Chloride 104 (98-107) mEq/L Carbon Dioxide 25 (21-32) mEq/L Anion Gap 13.4 (5-15) BUN 23 H (7-18) mg/dL Creatinine 1.7 H (0.7-1.3) mg/dL Est Cr Clr Drug Dosing 50.69 mL/min Estimated GFR (MDRD) 51 (>60) mL/min BUN/Creatinine Ratio 13.5 L (14-18) Glucose 77 (70-99) mg/dL Calcium 8.3 L (8.5-10.1) mg/dL Magnesium 2.2 (1.8-2.4) mg/dL Total Bilirubin 0.6 (0.2-1.0) mg/dL AST 17 (15-37) U/L ALT 18 (16-63) U/L Alkaline Phosphatase 41 L (46-116) U/L C-Reactive Protein 13.2 H* (<1.0) mg/dL Total Protein 6.7 (6.4-8.2) g/dl Albumin 2.2 L (3.4-5.0) g/dl Globulin 4.5 gm/dL Albumin/Globulin Ratio 0.5 L (1-2) Med Orders - Current: Current Medications Acetaminophen (Acetaminophen 325 Mg Tab) 650 mg PO Q4H PRN PRN Reason: Pain (Mild 1-3)/fever Last Admin: 08/08/21 04:05 Dose: 650 mg Documented by: Albuterol (Albuterol 6.7 Gm Inhaler) 0 gm INH Q2H PRN PRN Reason: Shortness of Breath Albuterol/Ipratropium (Albuterol/Ipratropium 3.0-0.5 Mg/3 Ml Neb Soln) 3 ml NEB QIDRT PRN PRN Reason: Shortness Of Breath/wheezing Benzonatate (Benzonatate 100 Mg Cap) 100 mg PO TID [facility] Last Admin: 08/08/21 08:50 Dose: 100 mg Documented by: Hydrochlorothiazide (Hydrochlorothiazide 25 Mg Tab) 25 mg PO DAILY [facility] Last Admin: 08/08/21 08:50 Dose: 25 mg Documented by: Losartan Potassium (Losartan 50 Mg Tab) 50 mg PO DAILY [facility] Last Admin: 08/08/21 08:50 Dose: 50 mg Documented by: Ondansetron HCl (Ondansetron 4 Mg/2 Ml Sdv) 4 mg IV Q6H PRN PRN Reason: Nausea/Vomiting Oxycodone HCl (Oxycodone 5 Mg Tab) 5 mg PO Q4H PRN PRN Reason: Pain Promethazine HCl/Codeine (Codeine/Promethazine 10-6.25 Mg/5 Ml Syrup 5 Ml Ud Cup) 5 ml PO Q4H PRN PRN Reason: Cough Senna/Docusate Sodium (Docusate Sodium/Sennosides 50-8.6 Mg Tab) 1 tab PO BID PRN PRN Reason: Constipation Spironolactone (Spironolactone 25 Mg Tab) 25 mg PO DAILY [facility] Last Admin: 08/08/21 08:52 Dose: 25 mg Documented by: Discontinued Medications Apixaban (Apixaban 5 Mg Tab) 5 mg PO ONETIME ONE Stop: 08/07/21 21:01 Last Admin: 08/07/21 21:45 Dose: 5 mg Documented by: Apixaban (Apixaban 5 Mg Tab) 10 mg PO BID [facility] Last Admin: 08/08/21 09:02 Dose: 10 mg Documented by: Benzonatate (Benzonatate 100 Mg Cap) 100 mg PO ONETIME ONE Stop: 08/07/21 11:43 Last Admin: 08/07/21 11:53 Dose: 100 mg Documented by: Orphenadrine Citrate (Orphenadrine 100 Mg Tab.Er) 100 mg PO NOW STA Stop: 08/07/21 11:36 Last Admin: 08/07/21 11:53 Dose: 100 mg Documented by: - Exam Quality Assessment: DVT Prophylaxis. No: Supplemental Oxygen General: Alert, Oriented, Cooperative, No Acute Distress HEENT: Pupils Equal, Pupils Reactive, Mucous Membr. Moist/[place] Neck: Supple, Trachea Midline Lungs: Normal Respiratory Effort, Decreased Breath Sounds, Crackles Cardiovascular: Regular Rate, Regular Rhythm GI/Abdominal Exam: Normal Bowel Sounds, Soft, Non-Tender, No Distention (Male) Exam: Deferred Back Exam: Normal Inspection, Full Range of Motion Extremities: Normal Inspection, Normal Range of Motion, Non-Tender, No Pedal Edema, Normal Capillary Refill Peripheral Pulses: 2+: Radial (L), Radial (R), Dorsalis Pedis (L), Dorsalis Pedis (R) Skin: Warm, Dry, Intact Neurological: No New Focal Deficit Psy/Mental Status: Alert, Normal Affect, Normal Mood - Patient Data Lab Results Last 24 hrs: Laboratory Results - last 24 hr 08/07/21 08/07/21 08/07/21 Range/Units 12:25 12:25 19:18 WBC 5.89 (4.23-9.07) K/mm3 RBC 4.42 L (4.63-6.08) M/mm3 Hgb 11.5 L D 12.6 L (13.7-17.5) gm/dl Hct 34.8 L 38.3 L (40.1-51.0) % MCV 78.7 L (79.0-92.2) fl MCH 26.0 (25.7-32.2) pg MCHC 33.0 (32.2-35.5) g/dl RDW Std Deviation 40.0 (35.1-43.9) fL Plt Count 584 H D (163-337) K/mm3 MPV 9.3 L (9.4-12.3) fl Neut % (Auto) 72.1 H (34.0-67.9) % Lymph % (Auto) 9.8 L (21.8-53.1) % [place] % (Auto) 16.8 H (5.3-12.2) % Eos % (Auto) 0.3 L (0.8-7.0) Baso % (Auto) 0.5 (0.1-1.2) % Neut # (Auto) 4.24 (1.78-5.38) K/mm3 Lymph # (Auto) 0.58 L (1.32-3.57) K/mm3 [place] # (Auto) 0.99 H (0.30-0.82) K/mm3 Eos # (Auto) 0.02 L (0.04-0.54) K/mm3 Baso # (Auto) 0.03 (0.01-0.08) K/mm3 Manual Slide Review Abnormal smear Sodium 136 (136-145) mEq/L Potassium 5.0 (3.5-5.1) mEq/L Chloride 102 (98-107) mEq/L Carbon Dioxide 29 (21-32) mEq/L Anion Gap 10.0 (5-15) BUN 23 H (7-18) mg/dL Creatinine 1.8 H (0.7-1.3) mg/dL Est Cr Clr Drug Dosing 47.88 mL/min Estimated GFR (MDRD) 48 (>60) mL/min BUN/Creatinine Ratio 12.8 L (14-18) Glucose 89 (70-99) mg/dL Calcium 8.6 (8.5-10.1) mg/dL Magnesium (1.8-2.4) mg/dL Total Bilirubin 0.5 (0.2-1.0) mg/dL AST 12 L (15-37) U/L ALT 17 (16-63) U/L Alkaline Phosphatase 41 L (46-116) U/L C-Reactive Protein (<1.0) mg/dL Total Protein 6.9 (6.4-8.2) g/dl Albumin 2.3 L (3.4-5.0) g/dl Globulin 4.6 gm/dL Albumin/Globulin Ratio 0.5 L (1-2) 08/08/21 08/08/21 Range/Units 05:15 05:15 WBC 5.63 (4.23-9.07) K/mm3 RBC 4.33 L (4.63-6.08) M/mm3 Hgb 11.2 L (13.7-17.5) gm/dl Hct 34.0 L (40.1-51.0) % MCV 78.5 L (79.0-92.2) fl MCH 25.9 (25.7-32.2) pg MCHC 32.9 (32.2-35.5) g/dl RDW Std Deviation 39.3 (35.1-43.9) fL Plt Count 616 H (163-337) K/mm3 MPV 9.9 (9.4-12.3) fl Neut % (Auto) 62.8 (34.0-67.9) % Lymph % (Auto) 15.6 L (21.8-53.1) % [place] % (Auto) 19.9 H (5.3-12.2) % Eos % (Auto) 0.9 (0.8-7.0) Baso % (Auto) 0.4 (0.1-1.2) % Neut # (Auto) 3.54 (1.78-5.38) K/mm3 Lymph # (Auto) 0.88 L (1.32-3.57) K/mm3 [place] # (Auto) 1.12 H (0.30-0.82) K/mm3 Eos # (Auto) 0.05 (0.04-0.54) K/mm3 Baso # (Auto) 0.02 (0.01-0.08) K/mm3 Manual Slide Review Sodium 138 (136-145) mEq/L Potassium 4.4 (3.5-5.1) mEq/L Chloride 104 (98-107) mEq/L Carbon Dioxide 25 (21-32) mEq/L Anion Gap 13.4 (5-15) BUN 23 H (7-18) mg/dL Creatinine 1.7 H (0.7-1.3) mg/dL Est Cr Clr Drug Dosing 50.69 mL/min Estimated GFR (MDRD) 51 (>60) mL/min BUN/Creatinine Ratio 13.5 L (14-18) Glucose 77 (70-99) mg/dL Calcium 8.3 L (8.5-10.1) mg/dL Magnesium 2.2 (1.8-2.4) mg/dL Total Bilirubin 0.6 (0.2-1.0) mg/dL AST 17 (15-37) U/L ALT 18 (16-63) U/L Alkaline Phosphatase 41 L (46-116) U/L C-Reactive Protein 13.2 H* (<1.0) mg/dL Total Protein 6.7 (6.4-8.2) g/dl Albumin 2.2 L (3.4-5.0) g/dl Globulin 4.5 gm/dL Albumin/Globulin Ratio 0.5 L (1-2) Result Diagrams: 08/08/21 05:15 08/08/21 05:15 Sepsis Event Note - Evaluation Sepsis Screening Result: No Definite Risk - Focused Exam Vital Signs: Vital Signs Temp Pulse Resp BP Pulse Ox 08/08/21 08:50 138/69 08/08/21 03:55 98.4 F 47 L 20 129/90 99 08/07/21 21:42 99.0 F 54 L 24 H 157/90 H 96 - Problem List & Annotations (1) Cough with hemoptysis SNOMED Code(s): 53961888 Code(s): R04.2 - HEMOPTYSIS Status: Acute Priority: High Current Visit: Yes (2) Noncompliance with medication regimen SNOMED Code(s): 594530807 Code(s): Z91.14 - PATIENT'S OTHER NONCOMPLIANCE WITH MEDICATION REGIMEN Status: Acute Priority: High Current Visit: Yes (3) COVID-19 SNOMED Code(s): 591437713 Code(s): U07.1 - COVID-19 Status: Chronic Priority: High Current Visit: Yes (4) Pulmonary embolism and infarction SNOMED Code(s): 7839749331247 Code(s): I26.99 - OTHER PULMONARY EMBOLISM WITHOUT ACUTE COR PULMONALE Status: Chronic Priority: High Current Visit: Yes (5) HTN (hypertension) SNOMED Code(s): 84265012 Code(s): I10 - ESSENTIAL (PRIMARY) HYPERTENSION Status: Chronic Priority: Medium Current Visit: No Qualifiers: Hypertension type: unspecified Qualified Code(s): I10 - Essential (primary) hypertension (6) Renal failure SNOMED Code(s): 39215408 Code(s): N19 - UNSPECIFIED KIDNEY FAILURE Status: Acute Priority: Medium Current Visit: Yes Qualifiers: Renal failure chronicity: unspecified chronicity Qualified Code(s): N19 - Unspecified kidney failure (7) Medication overdose SNOMED Code(s): 1150491212 Code(s): T50.901A - POISONING BY UNSP DRUG/MEDS/BIOL SUBST, ACCIDENTAL, INIT Status: Acute Priority: High Current Visit: Yes Qualifiers: Encounter type: initial encounter Injury intent: accidental or unintentional Qualified Code(s): T50.901A - Poisoning by unspecified drugs, medicaments and biological substances, accidental (unintentional), initial encounter - Problem List Review Problem List Initiated/Reviewed/Updated: Yes - My Orders Last 24 Hours: My Active Orders 08/07/21 14:17 Cardiac Monitoring [RC] CONTINUOUS Height and Weight [RC] 06 Oxygen Therapy [RC] ASDIRECTED Pulse Oximetry [RC] CONTINUOUS Up With Assistance [RC] BID Vital Signs [RC] 04,10,16,22 Acetaminophen [TylenoL] 650 mg PO Q4H PRN Albuterol [Proventil HFA] See Dose Instructions INH Q2H PRN Albuterol/Ipratropium [DuoNeb 3.0-0.5 MG/3 ML] 3 ml NEB QIDRT PRN Docusate Sodium/Sennosides [Senna Plus] 1 tab PO BID PRN Ondansetron [Zofran] 4 mg IV Q6H PRN Isolation [COMM] Routine 08/07/21 14:18 RT Aerosol Therapy [RC] ASDIRECTED 08/07/21 14:20 Codeine/Promethazine [Phenergan with Codeine] 5 ml PO Q4H PRN 08/07/21 14:22 Consult to Respiratory Therapy [Respiratory Care Assess and Treatment] [CONS] Routine 08/07/21 15:00 Benzonatate [Tessalon Perles] 100 mg PO TID 08/07/21 Dinner Regular Diet [DIET] 08/08/21 09:00 Losartan [Cozaar] 50 mg PO DAILY Spironolactone [Aldactone] 25 mg PO DAILY hydroCHLOROthiazide 25 mg PO DAILY 08/09/21 05:11 C-REACTIVE PROTEIN [CHEM] AM CBC WITH AUTO DIFF [HEME] AM COMPREHENSIVE METABOLIC PN,CMP [CHEM] AM MAGNESIUM [CHEM] AM 08/10/21 05:11 C-REACTIVE PROTEIN [CHEM] AM CBC WITH AUTO DIFF [HEME] AM COMPREHENSIVE METABOLIC PN,CMP [CHEM] AM MAGNESIUM [CHEM] AM 08/11/21 05:11 C-REACTIVE PROTEIN [CHEM] AM CBC WITH AUTO DIFF [HEME] AM COMPREHENSIVE METABOLIC PN,CMP [CHEM] AM MAGNESIUM [CHEM] AM - Assessment Assessment:: Assessment - day of admission 08/07/2021 * 56-year-old male who presents to ED with hemoptysis and intermittent right rib pain. * History of hypertension. * Reportedly seen in our emergency department and subsequently diagnosed with Covid on 07/31/2021 * Returned 2 days later noting increased shortness of breath and rib pain and CTA showed extensive pulmonary emboli without evidence of right heart strain. * Started on Eliquis 10 mg twice daily and discharged home * Reportedly completed one dose of Covid vaccination in June. * Today he notes he has had significant rib pain with coughing and that he has been taking Phenergan with codeine for cough but also has been taking an extra Eliquis tab because he feels like it helps with the pain * Reports he is still taking his prescribed 10 mg of Eliquis twice daily but has been taking an extra 5 mg tablet once a day for the past 3 days. * Notes he had a moderate amount of blood in his sputum today but denies any black or tarry stools. * He is also been taking home Tylenol. * Labs are obtained: * WBC 5.89. * Hemoglobin is 11.5. Of note it was 13.5 and 13.7 on his prior visits. * Platelets are elevated at 584,000. * Neutrophils are 72.1%. * Sodium is 136. * Potassium 5.0. * Chloride 102. * Carbon dioxide 29. * Anion gap 10.0. * BUN is 2.3. Creatinine 1.8. GFR is 48. * Calcium is 8.6. * Total bilirubin 0.5. * AST is 12, ALT 17, alkaline phosphatase 41. * Albumin is low at 2.3. * He is given a Tessalon Perles and a Norflex for his rib pain. * Chest x-ray is obtained showing increased density within both lung bases which is felt to be fairly similar to prior chest CT. There is also mild cardiomegaly and tortuous thoracic aorta but nothing acute appreciated. * Admitted to the medical surgical floor observation status for further management and monitoring of his Eliquis induced hemoptysis secondary to overdose. 08/08/2021 - Plan Plan:: Medication overdose Noncompliance with medication regimen * Explained action of Eliquis and what to take for pain instead * Recheck H/H today at 1900 * AM labs * Utilize teach back and good education at discharge to reinforce dosing instructions Pulmonary embolism and infarction * 5 mg Eliquis tonight * Consider 10 mg twice daily resumption of Eliquis tomorrow pending labs COVID-19 Cough with hemoptysis * Breathing exercises * RT consult * Airborne/contact isolation * O2 to keep saturation between 88 to 95% * Cough medications as prescribed * Pain medications as prescribed * Prone whenever able * Requested direction for how long to isolate/quarantine after discharge * Telemetry * Continuous pulse oximetry HTN (hypertension) * Home BP medications as prescribed * Monitor vital signs * No acute concerns Renal failure * Unknown baselineobtain old records * Avoid nephrotoxic medications if possible Code status: Full code PCP: None - needs to establish [facility] Navigator: Dr. Spencer DVT prophylaxis: Eliquis Disposition: Patient admitted observation status to the medical floor for monitoring due to Eliquis overdose and Covid pneumonia. Likely discharge in 1 to 2 days pending lab stability
--- NOTE | 2021-08-08 15:25 | PCM.DCSUM1 ---
Discharge Summary - Hospital Course HPI Initial Comments: This is a 56-year-old male who presents to ED on 08/07/2021 with hemoptysis and intermittent right rib pain. He was reportedly seen in our emergency department and subsequently diagnosed with Covid on 07/31/2021. He returned 2 days later noting increased shortness of breath and rib pain and CTA showed extensive pulmonary emboli without evidence of right heart strain. He was started on Eliquis 10 mg twice daily and discharged home. He reportedly completed one dose of Covid vaccination in June. Today he notes he has had significant rib pain with coughing and that he has been taking Phenergan with codeine for cough but also has been taking an extra Eliquis tab because he feels like it helps with the pain. He reports he is still taking his prescribed 10 mg of Eliquis twice daily but has been taking an extra 5 mg tablet once a day for the past 3 days. He notes he had a moderate amount of blood in his sputum today denies any black or tarry stools. He is also been taking home Tylenol. In the ED temp is 98.1 Fahrenheit. Pulse 60. Respirations 17. Blood pressure 151/109. Pulse ox is 98%. Labs are obtained showing a WBC of 5.89. Hemoglobin is 11.5. Of note it was 13.5 and 13.7 on his prior visits. Platelets are elevated at 584,000. Neutrophils are 72.1%. Sodium is 136. Potassium 5.0. Chloride 102. Carbon dioxide 29. Anion gap 10.0. BUN is 2.3. Creatinine 1.8. GFR is 48. Calcium is 8.6. Total bilirubin 0.5. AST is 12, ALT 17, alkaline phosphatase 41. Albumin is low at 2.3. He is given a Tessalon Perles and a Norflex for his rib pain. Chest x-ray is obtained showing increased density within both lung bases which is felt to be fairly similar to prior chest CT. There is also mild cardiomegaly and tortuous thoracic aorta but nothing acute appreciated. He carries a history of hypertension. He is a full code. He is admitted to the medical surgical floor observation status for further management and monitoring of his Eliquis induced hemoptysis secondary to overdose. Diagnosis: Stroke: No - Discharge Data Discharge Date: 08/08/21 (Admit date: 08/07/2021) Discharge Disposition: Home, Self-Care 01 Condition: Good - Referral to Home Health Primary Care Physician: Deacon Spencer MD - Discharge Diagnosis/Problem(s) (1) Cough with hemoptysis SNOMED Code(s): 31912235 ICD Code: R04.2 - HEMOPTYSIS Status: Acute Priority: High Current Visit: Yes (2) Noncompliance with medication regimen SNOMED Code(s): 791190274 ICD Code: Z91.14 - PATIENT'S OTHER NONCOMPLIANCE WITH MEDICATION REGIMEN Status: Acute Priority: High Current Visit: Yes (3) COVID-19 SNOMED Code(s): 691199168 ICD Code: U07.1 - COVID-19 Status: Chronic Priority: High Current Visit: Yes (4) Pulmonary embolism and infarction SNOMED Code(s): 1772406864650 ICD Code: I26.99 - OTHER PULMONARY EMBOLISM WITHOUT ACUTE COR PULMONALE Status: Chronic Priority: High Current Visit: Yes (5) HTN (hypertension) SNOMED Code(s): 81502267 ICD Code: I10 - ESSENTIAL (PRIMARY) HYPERTENSION Status: Chronic Priority: Medium Current Visit: No Qualifiers: Hypertension type: unspecified Qualified Code(s): I10 - Essential (primary) hypertension (6) Renal failure SNOMED Code(s): 42724428 ICD Code: N19 - UNSPECIFIED KIDNEY FAILURE Status: Acute Priority: Medium Current Visit: Yes Qualifiers: Renal failure chronicity: unspecified chronicity Qualified Code(s): N19 - Unspecified kidney failure (7) Medication overdose SNOMED Code(s): 8536196629 ICD Code: T50.901A - POISONING BY UNSP DRUG/MEDS/BIOL SUBST, ACCIDENTAL, INIT Status: Acute Priority: High Current Visit: Yes Qualifiers: Encounter type: initial encounter Injury intent: accidental or unintentional Qualified Code(s): T50.901A - Poisoning by unspecified drugs, medicaments and biological substances, accidental (unintentional), initial encounter - Patient Summary/Data Consults: Consultations 08/07/21 14:22 Consult to Respiratory Therapy [Respiratory Care Assess and Treatment] [CONS] Routine Labs Pending at D/C: None Recommended Follow-up Testing/Procedures: Follow-up with primary care provider within 5 to 7 days of discharge, sooner if needed. * Recommend repeat CBC, CMP, and magnesium in follow-up * Patient discharged on 3 more 10 mg twice daily doses of Eliquis and then instructed to change to 5 mg twice daily thereafter * Prescription sent for both 10 mg and 5 mg with appropriate directions * Prescribed Tessalon Perles at discharge * Patient instructed not to take NSAIDs due to baseline kidney concerns and increased risk of bleeding * All other home medications continued Hospital Course: This is a 56-year-old male presents to ED on 08/07/2021 with hemoptysis and intermittent right rib pain. He carries a history of CKD and hypertension. He has been seeing nephrology and is on multiple hypertension medications. He was seen in our emergency department diagnosed with Covid on 07/31/2021. He returned on 08/02/2021 with shortness of breath and rib pain and CTA showed extensive pulmonary emboli. He was started on Eliquis 10 mg twice daily and discharged home. He has not been taking his medication prescribed. He has been taking the 10 mg but also supplementing 5 mg tablets daily as he states that he believes they help his rib pain. Unsurprisingly patient started to notice blood-tinged sputum and presented to our emergency room. Denied any melena or bloody stools. Labs were reviewed from prior visits with a hemoglobin in the upper 13's. In the emergency room on admission he was noted to have a hemoglobin 11.5. Chest x-ray was obtained showing increased density within both lung bases consistent with COVID-19 but similar from prior chest CT. Mild cardiomegaly and tortuous thoracic aorta were also noted, but nothing acute. He was admitted for continued monitoring as observation status. Once on the floor patient was extensively educated on importance of following prescription medication guidelines. Hemoglobin trend throughout his stay was 11.5-->12.6-->11.2-->12.2. He did have a productive cough and sputum was noted to be mostly yellow and white with some mild pink tinting. He was placed on Covid precautions. Home blood pressure medications were continued. Patient did report continued rib pain and he was instructed to take Tylenol for this. He had reportedly been taking ibuprofen as well and he was instructed not to take this as it can promote bleeding and worsen his baseline renal function. As noted patient does have chronic kidney disease with a baseline creatinine of 1.7-1.9. Creatinine on admission was 1.8 and today on the floor was 1.7. He does reportedly have a follow-up appointment with Dr. Spencer, nephrology. Case management was in to see the patient and attempted to set the patient up with a primary care provider, which she refused. He reportedly stated that he knows where the clinic is in [place] and will go there if needed. Patient was advised to follow-up with primary care provider within 5 to 7 days of discharge, sooner if needed. Recommend repeat CBC, CMP, and magnesium in follow-up. Patient will be discharged on 3 more doses of 10 mg twice daily Eliquis. He was then instructed to take 5 mg Eliquis twice daily from there on out. Prescriptions for both 10 mg and 5 mg were sent to the pharmacy as patient has used up his supply with his excess dosing. He was again instructed to take this as prescribed. He was advised to take [id number] Tylenol for pain. He was prescribed Tessalon Perles for his cough. He was instructed to return the emergency room or contact primary care provider should symptoms return or worsen. He was advised to especially pay attention if he notices gross bleeding. Discharged home today. Oxygen saturations have been in the upper to mid 90s throughout the patient stay on room air. - Patient Instructions Diet: Usual Diet as Tolerated Activity: As Tolerated Driving: Do Not Drive (until feeling better ) Showering/Bathing: May Shower Notify Provider of: Fever, Increased Pain, Nausea and/or Vomiting Other/Special Instructions: Follow-up with primary care provider within 5 to 7 days of discharge, sooner if needed. Take your medications as as prescribed. In regards to your Eliquis (apixaban - your blood thinner for the clots in your lungs) take 10 mg or 2 tablets twice a day tonight (08/08/2021) and tomorrow morning and night (08/09/2021). You are given a 10 mg dose prior to leaving the hospital. Then switch to 1 tablet twice a day morning and night from then on. You will likely notice some blood in your spit for a while. This is nothing to be too concerned about. What would be concerning and when you should return to the emergency room as if you have significant bleeding or notice you are coughing straight blood. Resume home medications as directed. Recommend you stop taking ibuprofen and switch to tylenol as needed for pain. Ibuprofen can hurt your kidneys and also promote bleeding. Continue to isolate/quarantine for your Covid. You were provided the contact information for the [facility] COVID response line to give you direction on when you may return to work. Should symptoms return or worsen contact primary care provider or return to the emergency room. - Discharge Plan *PRESCRIPTION DRUG MONITORING PROGRAM REVIEWED*: No *COPY OF PRESCRIPTION DRUG MONITORING REPORT IN PATIENT CAROL ANN: No Prescriptions/Med Rec: Apixaban [Eliquis] 10 mg PO BID #6 tablet Apixaban [Eliquis] 5 mg PO BID #20 tablet Benzonatate [Tessalon Perle] 100 mg PO TID PRN #18 capsule PRN Reason: Cough Home Medications: Home Meds Codeine/Promethazine [Phenergan with Codeine] 5 ml PO Q4HR PRN #120 ml 07/31/21 [Rx] Losartan Potassium [Cozaar] 1 tab PO DAILY 07/31/21 [History] Spironolactone [Aldactone] 25 mg PO DAILY 07/31/21 [History] hydroCHLOROthiazide [Hydrochlorothiazide] 25 mg PO DAILY 07/31/21 [History] Ibuprofen 400 mg PO BID PRN 08/07/21 [History] Apixaban [Eliquis] 5 mg PO BID #20 tablet 08/08/21 [Rx] Apixaban [Eliquis] 10 mg PO BID #6 tablet 08/08/21 [Rx] Benzonatate [Tessalon Perle] 100 mg PO TID PRN #18 capsule 08/08/21 [Rx] Oxygen Therapy Mode: Room Air () Patient Handouts: COVID-19 Frequently Asked Questions, COVID-19, Hemoptysis, [id number], 10 Things You Can Do to Manage Your COVID-19 Symptoms at Home - [facility] (05/11/2021), Apixaban oral tablets Referrals: Deacon Spencer MD [Primary Care Provider] - 08/15/21 9:20 am (you are also scheduled for a vaccination at 09:00 that morning and this appointment is at [facility] in [place]) - Discharge Summary/Plan Comment DC Time >30 min.: No Total # of Minutes for Discharge Time: 22 - General Info Date of Service: 08/08/21 Admission Dx/Problem (Free Text: Admission Diagnosis/Problem Admission Diagnosis/Problem Hemoptysis Functional Status: Reports: Pain Controlled, Tolerating Diet, Ambulating, Urinating, Incentive Spirometry. Denies: New Symptoms - Review of Systems General: Reports: No Symptoms. Denies: Fever, Weakness, Fatigue, Malaise, Chills HEENT: Reports: No Symptoms. Denies: Headaches, Sore Throat Pulmonary: Reports: Pleuritic Chest Pain, Cough, Sputum. Denies: Shortness of Breath, Wheezing Cardiovascular: Reports: Dyspnea on Exertion. Denies: Chest Pain, Palpitations, Edema, Lightheadedness Gastrointestinal: Reports: No Symptoms. Denies: Abdominal Pain, Constipation, Diarrhea, Nausea, Vomiting Genitourinary: Reports: No Symptoms. Denies: Pain Musculoskeletal: Reports: No Symptoms Skin: Reports: No Symptoms. Denies: Cyanosis Neurological: Reports: No Symptoms. Denies: Confusion, Dizziness, Headache, Numbness, Seizure, Syncope, Tingling, Difficulty Walking, Weakness, Gait Disturbance Psychiatric: Reports: No Symptoms - Patient Data Vitals - Most Recent: Last Vital Signs Temp 97.3 F 08/08/21 08:51 Pulse 74 08/08/21 08:51 Resp 16 08/08/21 08:51 BP 138/69 08/08/21 08:51 Pulse Ox 99 08/08/21 03:55 Weight - Most Recent: 166 lb 3.2 oz I&O - Last 24 hours: Intake & Output 08/08/21 08/08/21 08/08/21 06:59 14:59 22:59 Intake Total 1230 Output Total 2600 Balance -1370 Lab Results - Last 24 hrs: Laboratory Results - last 24 hr 08/07/21 08/08/21 08/08/21 Range/Units 19:18 05:15 05:15 WBC 5.63 (4.23-9.07) K/mm3 RBC 4.33 L (4.63-6.08) M/mm3 Hgb 12.6 L 11.2 L (13.7-17.5) gm/dl Hct 38.3 L 34.0 L (40.1-51.0) % MCV 78.5 L (79.0-92.2) fl MCH 25.9 (25.7-32.2) pg MCHC 32.9 (32.2-35.5) g/dl RDW Std Deviation 39.3 (35.1-43.9) fL Plt Count 616 H (163-337) K/mm3 MPV 9.9 (9.4-12.3) fl Neut % (Auto) 62.8 (34.0-67.9) % Lymph % (Auto) 15.6 L (21.8-53.1) % [place] % (Auto) 19.9 H (5.3-12.2) % Eos % (Auto) 0.9 (0.8-7.0) Baso % (Auto) 0.4 (0.1-1.2) % Neut # (Auto) 3.54 (1.78-5.38) K/mm3 Lymph # (Auto) 0.88 L (1.32-3.57) K/mm3 [place] # (Auto) 1.12 H (0.30-0.82) K/mm3 Eos # (Auto) 0.05 (0.04-0.54) K/mm3 Baso # (Auto) 0.02 (0.01-0.08) K/mm3 Manual Slide Review Sodium 138 (136-145) mEq/L Potassium 4.4 (3.5-5.1) mEq/L Chloride 104 (98-107) mEq/L Carbon Dioxide 25 (21-32) mEq/L Anion Gap 13.4 (5-15) BUN 23 H (7-18) mg/dL Creatinine 1.7 H (0.7-1.3) mg/dL Est Cr Clr Drug Dosing 50.69 mL/min Estimated GFR (MDRD) 51 (>60) mL/min BUN/Creatinine Ratio 13.5 L (14-18) Glucose 77 (70-99) mg/dL Calcium 8.3 L (8.5-10.1) mg/dL Magnesium 2.2 (1.8-2.4) mg/dL Total Bilirubin 0.6 (0.2-1.0) mg/dL AST 17 (15-37) U/L ALT 18 (16-63) U/L Alkaline Phosphatase 41 L (46-116) U/L C-Reactive Protein 13.2 H* (<1.0) mg/dL Total Protein 6.7 (6.4-8.2) g/dl Albumin 2.2 L (3.4-5.0) g/dl Globulin 4.5 gm/dL Albumin/Globulin Ratio 0.5 L (1-2) 08/08/21 Range/Units 13:54 WBC (4.23-9.07) K/mm3 RBC (4.63-6.08) M/mm3 Hgb 12.2 L (13.7-17.5) gm/dl Hct 36.8 L (40.1-51.0) % MCV (79.0-92.2) fl MCH (25.7-32.2) pg MCHC (32.2-35.5) g/dl RDW Std Deviation (35.1-43.9) fL Plt Count (163-337) K/mm3 MPV (9.4-12.3) fl Neut % (Auto) (34.0-67.9) % Lymph % (Auto) (21.8-53.1) % [place] % (Auto) (5.3-12.2) % Eos % (Auto) (0.8-7.0) Baso % (Auto) (0.1-1.2) % Neut # (Auto) (1.78-5.38) K/mm3 Lymph # (Auto) (1.32-3.57) K/mm3 [place] # (Auto) (0.30-0.82) K/mm3 Eos # (Auto) (0.04-0.54) K/mm3 Baso # (Auto) (0.01-0.08) K/mm3 Manual Slide Review Sodium (136-145) mEq/L Potassium (3.5-5.1) mEq/L Chloride (98-107) mEq/L Carbon Dioxide (21-32) mEq/L Anion Gap (5-15) BUN (7-18) mg/dL Creatinine (0.7-1.3) mg/dL Est Cr Clr Drug Dosing mL/min Estimated GFR (MDRD) (>60) mL/min BUN/Creatinine Ratio (14-18) Glucose (70-99) mg/dL Calcium (8.5-10.1) mg/dL Magnesium (1.8-2.4) mg/dL Total Bilirubin (0.2-1.0) mg/dL AST (15-37) U/L ALT (16-63) U/L Alkaline Phosphatase (46-116) U/L C-Reactive Protein (<1.0) mg/dL Total Protein (6.4-8.2) g/dl Albumin (3.4-5.0) g/dl Globulin gm/dL Albumin/Globulin Ratio (1-2) Med Orders - Current: Current Medications Acetaminophen (Acetaminophen 325 Mg Tab) 650 mg PO Q4H PRN PRN Reason: Pain (Mild 1-3)/fever Last Admin: 08/08/21 04:05 Dose: 650 mg Documented by: Albuterol (Albuterol 6.7 Gm Inhaler) 0 gm INH Q2H PRN PRN Reason: Shortness of Breath Albuterol/Ipratropium (Albuterol/Ipratropium 3.0-0.5 Mg/3 Ml Neb Soln) 3 ml NEB QIDRT PRN PRN Reason: Shortness Of Breath/wheezing Benzonatate (Benzonatate 100 Mg Cap) 100 mg PO TID [facility] Last Admin: 08/08/21 08:50 Dose: 100 mg Documented by: Hydrochlorothiazide (Hydrochlorothiazide 25 Mg Tab) 25 mg PO DAILY [facility] Last Admin: 08/08/21 08:50 Dose: 25 mg Documented by: Losartan Potassium (Losartan 50 Mg Tab) 50 mg PO DAILY [facility] Last Admin: 08/08/21 08:50 Dose: 50 mg Documented by: Ondansetron HCl (Ondansetron 4 Mg/2 Ml Sdv) 4 mg IV Q6H PRN PRN Reason: Nausea/Vomiting Oxycodone HCl (Oxycodone 5 Mg Tab) 5 mg PO Q4H PRN PRN Reason: Pain Promethazine HCl/Codeine (Codeine/Promethazine 10-6.25 Mg/5 Ml Syrup 5 Ml Ud Cup) 5 ml PO Q4H PRN PRN Reason: Cough Senna/Docusate Sodium (Docusate Sodium/Sennosides 50-8.6 Mg Tab) 1 tab PO BID PRN PRN Reason: Constipation Spironolactone (Spironolactone 25 Mg Tab) 25 mg PO DAILY [facility] Last Admin: 08/08/21 08:52 Dose: 25 mg Documented by: Discontinued Medications Apixaban (Apixaban 5 Mg Tab) 5 mg PO ONETIME ONE Stop: 08/07/21 21:01 Last Admin: 08/07/21 21:45 Dose: 5 mg Documented by: Apixaban (Apixaban 5 Mg Tab) 10 mg PO BID ALFREDA Last Admin: 08/08/21 09:02 Dose: 10 mg Documented by: Benzonatate (Benzonatate 100 Mg Cap) 100 mg PO ONETIME ONE Stop: 08/07/21 11:43 Last Admin: 08/07/21 11:53 Dose: 100 mg Documented by: Orphenadrine Citrate (Orphenadrine 100 Mg Tab.Er) 100 mg PO NOW STA Stop: 08/07/21 11:36 Last Admin: 08/07/21 11:53 Dose: 100 mg Documented by: - Exam Quality Assessment: Reports: DVT Prophylaxis. Denies: Supplemental Oxygen, Urine Catheter General: Reports: Alert, Oriented, Cooperative, No Acute Distress HEENT: Reports: Pupils Equal, Pupils Reactive, Mucous Membr. Moist/[place] Neck: Reports: Supple, Trachea Midline Lungs: Reports: Normal Respiratory Effort, Decreased Breath Sounds, Crackles Cardiovascular: Reports: Regular Rate, Regular Rhythm GI/Abdominal Exam: Normal Bowel Sounds, Soft, Non-Tender, No Distention (Male) Exam: Deferred Rectal (Males) Exam: Deferred Back Exam: Reports: Normal Inspection, Full Range of Motion Extremities: Normal Inspection, Normal Range of Motion, Non-Tender, No Pedal Edema, Normal Capillary Refill Skin: Reports: Warm, Dry, Intact Neurological: Reports: No New Focal Deficit Psy/Mental Status: Reports: Alert, Normal Affect, Normal Mood
== END 2021-08-08 15:59 | disposition home or self-care (01) ==
LOC: JD.ED 10:15 → INTOOBSV 13:55 → JD.MS 13:55
PROVIDERS: ADMIT Family Medicine; ATTEND Family Medicine
DX: I26.99 Other pulmonary embolism without acute cor pulmonale (principal); U07.1 COVID-19; R04.2 Hemoptysis; N19 Unspecified kidney failure; T50.901A Poisoning by unspecified drugs, medicaments and biological substances, accidental (unintentional), initial encounter; Z79.01 Long term (current) use of anticoagulants; Z79.899 Other long term (current) drug therapy
CPT/HCPCS: 36415; 71045; 80053; 83735; 85014; 85018; 85025; 86140; 99285; A9270; G0378